=== PATIENT | female | born 1970 | race Caucasian/White ===

== ENCOUNTER 2024-11-15 15:08 | Outpatient (AMB) | payer BC, SELFPAY ==
--- NOTE | 2024-11-15 15:17 | A.OFFPC_ITS ---
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 Speaking Unit Assembler Required: No Accompanied by: Self / Same As Patient Allergies Penicillins (PCN) Allergy (Severe, Verified 11/15/24 15:24) Anaphylaxis Sulfa (Sulfonamide Antibiotics) Allergy (Severe, Verified 11/15/24 15:24) Anaphylaxis Tobacco use date assessed: 11/15/24 Dental Screening Dental Screen Date: 11/15/24 Did you have a dental visit in the last 12 months?: Yes Was dental information given to patient?: Patient has dentist HPI HPI Comments History of Present Illness Details History of Present Illness The patient is a 54-year-old female presenting for a primary care visit to establish care and address multiple health concerns, including hypertension and mental health issues. Essential Hypertension: - The patient has a history of hypertens ion, with a current blood pressure reading of 170/108 mmHg. - She was previously hospitalized for ma lignant hypertension and chest pain, during which she was started on diltiazem. - Despite medication, her blood pressure has remained elevated, often above 150 mmHg. Major Depressive Disorder: - The patient has a history of depressio n and anxiety, previously managed with paroxetine, which she discontinued two years ago. - She reports increased symptoms over th e past year, including increased alcohol consumption and reliance on hydroxyzine. Alcohol Use Disorder: - The patient consumes alcohol two to th ree times a week, with five to six drinks per occasion, primarily hard liquor mixed with Diet Coke. - She acknowledges that her drinking has increased since stopping paroxetine. Lung Nodule: - A previous CT scan revealed a lung nod ule, which was recommended for follow- up, but no further action was taken. Tobacco Use Disorder: - The patient has been smoking since age 25 and continues to smoke. Review of Systems - Cardiovascular: Reports hypertension, chest pain. Denies syncope. - Respiratory: Reports snoring, occasion al dysphagia. Denies dyspnea. - Psychiatric: Reports depression, anxie ty, increased alcohol use. 10-point ROS reviewed and negative excep t as noted in HPI Past Medical History - Hypertension - Depression - Anxiety - Malignant hypertension - Asthma - Hepatitis B Health Maintenance - Mammogram: Recommended due to last scr eening 10 years ago. - Colonoscopy: Recommended for colorecta l cancer screening. - Pap smear: Recommended despite menopau se. Physical Exam General: Well-appearing, in no acute distress. Vital signs: Blood pressure 170/108. HEENT: Normocephalic, atraumatic. PERRLA, EOMI. Conjunctiva clear, sclera anicteric. Oropharynx clear, mucous membranes moist. TMs intact bilaterally. Neck: Supple, no lymphadenopathy, no thyromegaly, no JVD or carotid bruits. Cardiovascular: RRR, normal S1/S2, no murmurs, rubs, or gallops. Peripheral pulses 2+ and symmetric. No edema. Respiratory: Lungs clear to auscultation bilaterally, no wheezes, rales, or rhonchi. Normal effort. Abdomen: Soft, non-tender, non-distended. Normoactive bowel sounds. No h epatosplenomegaly, no masses. MSK: Full range of motion, no joint swelling or deformity. Normal gait. Skin: Warm, dry, intact. No rashes, lesions, or pallor. Neuro: Alert and oriented x3. Cranial nerves II-XII intact. Strength 5/5 throughout. Sensation intact. Reflexes 2+ symmetric. Normal coordination and gait. Psych: Appropriate mood and affect. Normal judgment and insight. Reports depression and anxiety. Plan 1. Essential Hypertension - Restart diltiazem ER 240 mg once daily and monitor blood pressure regularly. - Order EKG, echocardiogram, CBC, CMP, a nd renal ultrasound to assess cardiovascular and renal status. 2. Major Depressive Disorder - Restart paroxetine 20 mg once daily an d monitor for improvement in symptoms. - Discussed the importance of avoiding a lcohol while on paroxetine due to potential side effects. 3. Alcohol Use Disorder - Discussed the need to reduce alcohol i ntake to manage hypertension and improve overall health. - Referral to behavioral health for supp ort in managing alcohol use and mental health. 4. Lung Nodule - Recommended follow-up imaging to asses s the lung nodule identified on previous CT scan. 5. Tobacco Use Disorder - Discussed smoking cessation strategies to reduce health risks. Discussion Notes I discussed with the patient the importance of managing her hypertension through medication and lifestyle changes, including reducing alcohol intake and smoking cessation. We reviewed the need for follow-up imaging for the lung nodule and the importance of resuming paroxetine for her depression and anxiety. I also recommended a referral to behavioral health for additional support. We agreed on a comprehensive plan to address her health concerns, including necessary screenings and tests. Patient was informed and verbally consented to the use of an ambient scribe for clinic note documentation during this visit. Patient Instructions - Take diltiazem ER 240 mg once daily as prescribed. - Take paroxetine 20 mg once daily and a void alcohol while on this medication. - Schedule and attend follow-up imaging for lung nodule assessment. - Reduce alcohol intake and consider [facility] for assistance. - Follow up with recommended screenings: mammogram, colonoscopy, and Pap smear. [facility] Medical History (Updated 11/15/24 @ 16:25 by Gallo Snell MD) Anxiety with depression Snoring Hypotension Family History (Updated 11/15/24 @ 15:29 by Nallely Colmenares [facility]) Mother Atrial fibrillation Breast cancer Lung cancer Father Colon cancer HTN (hypertension) Prostate cancer Alzheimer disease Social History (Updated 11/15/24 @ 15:30 by Nallely Colmenares [facility]) Housing: House Alcohol intake: current Patient Tobacco Use Status: Current everyday Tobacco user service: No Current occupational status: employed Cognitive needs: No Hearing needs: No Vision needs: Yes ( contacts) Questionnaire PHQ-9 Over the last 2 weeks, how often have you been bothered by any of the following problems? 1. Little interest or pleasure in doing things: several days 2. Feeling down, depressed, or hopeless: several days 3. Trouble falling or staying asleep, or sleeping too much: several days 4. Feeling tired or having little energy: several days 5. Poor appetite or overeating: several days 6. Feeling bad about yourself - or that you are a failure or have let yourself or your family down: several days 7. Trouble concentrating on things, such as reading the newspaper or watching television: not at all 8. Moving or speaking so slowly that other people could have noticed. Or the opposite - being so fidgety or restless that you have been moving around a lot more than usual: not at all 9. Thoughts that you would be better off or of hurting yourself in some way: not at all Total score: 6 Depression Screening Interpretation: Negative Depression Screening Done: Yes Source: Developed by Drs. Rohan Mullins, Bozena Mcconnell, Chris Joseph and colleagues, with an educational hcarlie from [employer]. Thrive Questionnaire Date Thrive assessed: 11/15/24 I am a: Patient What is your living situation today?: I have a steady place to live Within the past 12 months, did the food you bought not last and you didn't have the money to get more?: Never true Within the past 12 months, did you worry whether your food would run out before you got money to buy more?: Never true Do you have trouble paying for medicines?: No Do you have trouble getting transportation to medical appointments?: No Do you have trouble paying your heating and electricity bill?: No Do you have trouble taking care of your child, family member or friend?: No Do you have trouble with day-to-day activities such as bathing, preparing meals, shopping, managing finances, etc.?: No Are you currently unemployed and looking for a job?: No Are you interested in more education?: No Please select the resources that you would like help with: None Currently or been in a relationship where the following occur: No concerns reported THRIVE Score: 0 AUDIT C Alcohol Use Questionnaire (AUDIT-C) 1. How often do you have a drink containing alcohol?: 2-3 times a week 2. How many drinks containing alcohol do you have on a typical day when you are drinking?: 5 or 6 3. How often do you have six or more drinks on one occasion?: Monthly Total Score: 7 NOA-7 AMB Questionnaire NOA-7 Date NOA - 7 assessed: 11/15/24 Feeling nervous, anxious, or on edge: 1 = Several days Not being able to stop or control worryin = Several days Worrying too much about different things: 1 = Several days Trouble relaxin = Several days Being so restless that it is hard to sit still: 0 = Not at all Becoming easily annoyed or irritable: 1 = Several days Feeling afraid as if something awful might happen: 1 = Several days Total NOA-7 score (0-4 normal; 5-9 mild; 10-14 moderate; 15-21 severe): 6 Source: Developed by Drs. Rohan Mullins, Bozena Mcconnell, Chris Joseph and colleagues, with an educational charlie from [employer]. Physical exam (Primary Care) Vital Signs: Last Vital Signs Temp 98.0 F 11/15/24 15:21 Pulse 93 11/15/24 15:21 BP 170/108 H 11/15/24 15:21 Pulse Ox 98 11/15/24 15:21 BMI result Body Mass Index 26.3 Tobacco/Smoking Status: Tobacco use Status Tobacco use date assessed 11/15/24 11/15/24 15:35 Patient Tobacco Use Status Current everyday Tobacco 11/15/24 15:35 PHQ-9: PHQ-9 Score PHQ-9: Total score 6 11/15/24 15:36 Depression Screening Interpretation: Negative Thrive Assessment: Date of Thrive Assessment Date Thrive assessed 11/15/24 11/15/24 15:35 Currently or been in a relationship where the following occur: No concerns reported Coding Level of Care Code New Pt Level 4 (54011) Diagnoses Establishing care with new doctor, encounter for Z76.89 Encounter for screening, unspecified Z13.9 Counseling, unspecified Z71.9 Hypertension I10 Adjustment disorder with anxiety F43.22 Screening for diabetes mellitus Z13.1 Screening for lipoid disorders Z13.220 Screening for depression Z13.31 Screening for HIV (human immunodeficiency virus) Z11.4 Hypotension I95.9 Snoring R06.83 Cervical cancer screening Z12.4 Screening for malignant neoplasm of colon Z12.11 History of nicotine use Z87.891 Alcohol abuse F10.10 Lung nodule R91.1 Assessment & Plan Assessment & Plan (1) Establishing care with new doctor, encounter for: Code(s): Z76.89 - Persons encountering health services in other specified circumstances (2) Encounter for screening, unspecified: Code(s): Z13.9 - Encounter for screening, unspecified (3) Counseling, unspecified: Code(s): Z71.9 - Counseling, unspecified (4) Hypertension: Code(s): I10 - Essential (primary) hypertension (5) Adjustment disorder with anxiety: Code(s): F43.22 - Adjustment disorder with anxiety (6) Screening for diabetes mellitus: Code(s): Z13.1 - Encounter for screening for diabetes mellitus (7) Screening for lipoid disorders: Code(s): Z13.220 - Encounter for screening for lipoid disorders (8) Screening for depression: Code(s): Z13.31 - Encounter for screening for depression (9) Screening for HIV (human immunodeficiency virus): Code(s): Z11.4 - Encounter for screening for human immunodeficiency virus [HIV] (10) Hypotension: Code(s): I95.9 - Hypotension, unspecified Category: Medical (11) Snoring: Code(s): R06.83 - Snoring Category: Medical (12) Cervical cancer screening: Code(s): Z12.4 - Encounter for screening for malignant neoplasm of cervix (13) Screening for malignant neoplasm of colon: Code(s): Z12.11 - Encounter for screening for malignant neoplasm of colon (14) History of nicotine use: Code(s): Z87.891 - Personal history of nicotine dependence (15) Alcohol abuse: Code(s): F10.10 - Alcohol abuse, uncomplicated (16) Lung nodule: Code(s): R91.1 - Solitary pulmonary nodule Plan Orders: Orders Comprehensive Met. Panel Today Z13.9 - Encounter for screening, unspecified, Z76.89 - Persons encountering health services in other specified circumstances Hepatitis B Surface Antigen Today Z13.9 - Encounter for screening, unspecified, Z76.89 - Persons encountering health services in other specified circumstances Hepatitis C Antibody Today Z13.9 - Encounter for screening, unspecified, Z76.89 - Persons encountering health services in other specified circumstances HIV Ab/Ag Today Z13.9 - Encounter for screening, unspecified, Z76.89 - Persons encountering health services in other specified circumstances TSH reflex Free T4 Today Z13.9 - Encounter for screening, unspecified, Z76.89 - Persons encountering health services in other specified circumstances UA CC w/rflx Micro + Cult Today Z13.9 - Encounter for screening, unspecified, Z76.89 - Persons encountering health services in other specified circumstances Magnesium Today Z13.9 - Encounter for screening, unspecified, Z76.89 - Persons encountering health services in other specified circumstances MM screening mammo BI Today Z12.31 - Encounter for screening mammogram for malignant neoplasm of breast ECG 12 lead EKG Today I95.9 - Hypotension, unspecified Complete Blood Count Auto Diff Today Z13.9 - Encounter for screening, unspecified, Z76.89 - Persons encountering health services in other specified circumstances Hemoglobin A1c Today Z13.9 - Encounter for screening, unspecified, Z76.89 - Persons encountering health services in other specified circumstances Hepatitis B Surface Antibody Today Z13.9 - Encounter for screening, unspecified, Z76.89 - Persons encountering health services in other specified circumstances Lipid Panel Today Z13.9 - Encounter for screening, unspecified, Z76.89 - Persons encountering health services in other specified circumstances Syphilis Screen Today Z13.9 - Encounter for screening, unspecified, Z76.89 - Persons encountering health services in other specified circumstances Vitamin B12 and Folate Today Z13.9 - Encounter for screening, unspecified, Z76.89 - Persons encountering health services in other specified circumstances Vitamin D 1,25 dihydroxy Today Z13.9 - Encounter for screening, unspecified, Z76.89 - Persons encountering health services in other specified circumstances Microalbumin, Random (w Creat) Today Z13.9 - Encounter for screening, unspecified, Z76.89 - Persons encountering health services in other specified circumstances CA Echo Limited Today I95.9 - Hypotension, unspecified RT home sleep study Today I95.9 - Hypotension, unspecified, R06.83 - Snoring US retroperitoneal limited Today I10 - Essential (primary) hypertension Aldost/Renin Today I10 - Essential (primary) hypertension Referrals Open Access Screening Colonoscopy Referral Z12.11 - Encounter for screening for malignant neoplasm of colon, Z12.12 - Encounter for screening for malignant neoplasm of rectum Behavioral Health Referral F41.8 - Other specified anxiety disorders Medications: New diltiazem HCl ER (Tiazac) 240 mg PO DAILY 30 caps 0RF paroxetine HCl 20 mg PO DAILY 30 tabs 0RF
[2024-11-15 15:21] VITALS: BP 170/108; PULSE 93; TEMP 36.7; O2SAT 98; BMI 26.3
--- OUTSIDE RECORDS SUMMARY | 2024-11-15 17:37 | XMS_ITS | Clinical Summary ---
Author Organization [facility] ity Address [address] [place] [address] Care Team Providers Care Court Stenographer Name Role Phone Unavailable Primary Care Provider Unavailabl e Social History Tobacco Use Types Packs/Day Years Used Date Smoking Tobacco: Never Assessed Comments Unknown Sex and Gender Information Value Date Recorded Sex Assigned at Not on file Legal Sex Female 3:55 PM EST Gender Identity Not on file Sexual Orientation Not on file Plan of Treatment Health Maintenance Due Date Last Done Comments Breast Cancer Screening 1968 DTaP,Tdap,and Td Vaccines (1 - Tdap) 06/14/1987 Hepatitis B Vaccines (1 of 3 - 19+ 3-dose series) 06/14/1987 Cervical Cancer Screening: P ap Smear 1989 Pneumococcal Vaccine: 50+ Ye ars (1 of 1 - PCV) 2018 Zoster Vaccines (1 of 2) 2018 Colorectal Cancer Screening: Colonoscopy 03/23/2023 HIV Screening 03/23/2023 Hepatitis C Screening 03/23/2023 Social Influencers of Health Screening 03/23/2023 Depression Screening 02/23/2024 COVID-19 Vaccine ( - 2023-2 5 season) 2024 Influenza Vaccine (#1) 2024 HIB Vaccines Aged Out No longer eligi ble based on patient's age to complete this topic HPV Vaccines Aged Out No longer eligi ble based on patient's age to complete this topic Hepatitis A Vaccines Aged Out No long er eligible based on patient's age to complete this topic IPV Vaccines Aged Out No longer eligi ble based on patient's age to complete this topic MMR Vaccines Aged Out No longer eligi ble based on patient's age to complete this topic Meningococcal ACWY Vaccine Aged Out N o longer eligible based on patient's age to complete this topic Meningococcal B Vaccine Aged Out No l onger eligible based on patient's age to complete this topic RSV Immunization Patients Un bee 20 months Aged Out No longer eligible b ased on patient's age to complete this topic Varicella Vaccines Aged Out No longer eligible based on patient's age to complete this topic
--- OUTSIDE RECORDS SUMMARY | 2024-11-15 17:37 | XMS_ITS ---
Author Name [facility] Unknown History of Medication Use Medication Directions Dispensed Refills Start Date End Date Stat us lidocaine (PF) 100 mg/5 mL (2 %) injection syringe Take 3 mL by injection route. 08/01/2024 active triamcinolone acetonide 40 mg/mL suspension for injection Take 60 mg by injection route. 08/01/2024 active aspirin 325 mg tablet Take 1 tablet every day by oral route for 30 days. 05/11/2024 active oxycodone 5 mg tablet Take 1 tablet every 6 hours by oral route. 05/11/2024 active Diltiazem ER 240 mg capsule, extended release 05/10/2023 active hydroxyzine pamoate 50 mg capsule 50 mg as needed by oral route. 03/05/2019 active aspirin 325 mg tablet active oxycodone 5 mg tablet active lidocaine (PF) 100 mg/5 mL (2 %) injection syringe active triamcinolone acetonide 40 mg/mL suspension for injection active acetaminophen 500 mg tablet TAKE 2 TABLETS BY MOUTH 3 TIMES A DAY active Linda Aspirin 325 mg tablet TAKE 1 TABLET BY MOUTH EVERY DAY FOR 30 DAYS active diltiazem ER 240 mg tablet,extended release 24 hr TAKE 1 TABLET BY MOUTH EVERY DAY active doxycycline hyclate 100 mg capsule TAKE 1 CAPSULE BY MOUTH TWICE DAILY FOR 5 DAYS. active ibuprofen 600 mg tablet TAKE 1 TABLET BY MOUTH EVERY 6 HOURS active metronidazole 500 mg tablet 1 TABLET BY MOUTH 3 TIMES A DAY,X5 DAYS active Allergies Allergen Reaction Severity Comment Documented Date Source Statu s PENICILLINS ANAPHYLAXIS moderate to severe ENS_AONECT SULFA (SULFONAMIDE ANTIBIOTICS) ANAPHYLAXIS severe ENS_AONECT Encounters Encounter Type Encounter Reason Primary Diagnosis Location Date Ambulatory [facility] 10/05/2024 Ambulatory [facility] 09/29/2024 Ambulatory [facility] 08/24/2024 Ambulatory [facility] 08/01/2024 Ambulatory [facility] 07/13/2024 Ambulatory [facility] 06/29/2024 Ambulatory [facility] 06/12/2024 Ambulatory [facility] 06/05/2024 Ambulatory [facility] 05/31/2024 Ambulatory [facility] 05/24/2024 Ambulatory ROUTINE Other fracture o f upper and lower end of right fibula, initial encounter for closed fracture [facility] 05/19/2024 Ambulatory [facility] 05/17/2024 Ambulatory [facility] 05/12/2024 Ambulatory [facility] 05/11/2024 Ambulatory [facility] 05/10/2024 Ambulatory [facility] 05/08/2024 Ambulatory [facility] 05/08/2024 Ambulatory [facility] 05/08/2024 Care Team Organization Name Specialty Phone Email Start Date End Da gely [facility] 2024 [facility] 2024
== END 2024-11-15 16:30 | disposition home or self-care (01) ==
LOC: HO.HMCFMS 15:09
PROVIDERS: PCP Student in an Organized Health Care Education/Training Program; Visit Provider Student in an Organized Health Care Education/Training Program
DX: I10 Essential (primary) hypertension (principal); F43.22 Adjustment disorder with anxiety; I95.9 Hypotension, unspecified; R06.83 Snoring; F10.10 Alcohol abuse, uncomplicated; R91.1 Solitary pulmonary nodule; Z71.9 Counseling, unspecified

== ENCOUNTER 2024-11-17 15:35 | Outpatient (REF) | payer BC, SELFPAY ==
--- OUTSIDE RECORDS SUMMARY | 2024-11-17 16:02 | XMS_ITS | Clinical Summary ---
Author Organization [facility] ity Address [address] [place] [address] Care Team Providers Care Java User Interface Developer Name Role Phone Unavailable Primary Care Provider [...]
[2024-11-17 18:07] LABS: Hematocrit 44.6 % (37.0-47.0); Hemoglobin 15.0 g/dl (12.0-16.0); Imm Gran Abs Auto 0.03 X10*3/uL (0.00-0.03); Imm Gran Pct Auto 0.3 % (0.0-0.4); Lymphocytes Absolute Auto 3.7 X10*3/uL (1.2-4.9); MANUAL DIFF FLAG NO; Mean Corpuscular HGB Conc 33.6 g/dl (31.0-35.0); Mean Corpuscular Hemoglobin 33.3 pg (27.0-33.0); Mean Corpuscular Volume 98.9 fL (80.0-98.0); NRBC Abs Auto 0.000 X10*3/uL (0.0-0.012); NRBC Pct Auto 0.0 /100WBC (0.0-0.2); Platelet Count 298 X10*3/uL (160-400); Red Blood Count 4.51 X10*6/uL (4.20-5.50); White Blood Count 11.2 X10*3/uL (4.8-10.8)
[2024-11-17 18:20] LABS: Total Hemoglobin (HGBA1C) 3799.0975 umol/L
[2024-11-17 18:32] LABS: Alanine Aminotransferase 26 U/L (0-31); Albumin Level 4.2 g/dL (3.5-5.0); Alkaline Phosphatase 126 U/L (39-117); Anion Gap 13 (12-20); Aspartate Amino Transferase 26 U/L (5-31); Blood Urea Nitrogen 16 mg/dL (9-16); Calcium 9.7 mg/dL (8.4-10.2); Carbon Dioxide 24 mmol/L (22-29); Chloride 109 mmol/L (96-108); Cholesterol 306 mg/dL (<200); Estimated Glomerular Filt Rate > 60; HDL Cholesterol 63 mg/dL (>40); Magnesium 2.2 mg/dL (1.6-2.6); Potassium 4.1 mmol/L (3.3-5.1); Sodium 142 mmol/L (135-145); Total Protein 7.0 g/dL (6.5-8.0); Triglycerides 460 mg/dL (<150)
[2024-11-17 18:39] LABS: Microalbum/Creatinine Ratio Ur 7.3 ug/mg cr (<30)
[2024-11-17 18:58] LABS: Appearance Urine Clear; Glucose Urine UA Negative (Negative); PH 5.0 (5.0-9.0); Specific Gravity - Urine 1.020 (1.005-1.025); UMIC TRIGGER UACC YES
[2024-11-17 19:07] LABS: Folate 5.6 ng/mL (> or = 4.0); Vitamin B12 285 pg/mL (200-900)
[2024-11-20 04:07] LABS: Syphilis Screen Nonreactive (Nonreactive)
[2024-11-20 04:14] LABS: HBS Num1 > 1000.00 mIU/mL (0-7.99); HBsAGNum1 0.28 S/CO (0.00-0.99); HIV Num 1 0.04 S/CO (0.00-0.99); Hepatitis B Surface Antigen Negative (Negative); ~HepC Num1 0.24 S/CO (0.00-0.79); ~Hepatitis B Surface Antibody REACTIVE (Nonreactive); ~Hepatitis C Antibody Nonreactive (Nonreactive)
[2024-11-21 17:28] LABS: VITAMIN D (1,25 OH) D3 51 pg/mL; Vit D (1,25-Dihydroxy) Total 51 pg/mL (18-72); Vitamin D (1,25 OH) D2 <8 pg/mL
[2024-11-30 18:52] LABS: Plasma Renin Activity 1.21 ng/mL/h (0.25-5.82)
== END 2024-11-17 15:36 | disposition home or self-care (01) ==
LOC: HO.HKASLDS 15:35
PROVIDERS: Visit Provider Student in an Organized Health Care Education/Training Program
DX: Z13.1 Encounter for screening for diabetes mellitus (principal); Z13.89 Encounter for screening for other disorder; Z76.89 Persons encountering health services in other specified circumstances; I10 Essential (primary) hypertension
CPT/HCPCS: 36415; 80053; 80061; 81001; 81003; 82043; 82088; 82570; 82607; 82652; 82746; 83036; 83735; 84443; 85025; 86706; 86780; 86803; 87340; 87389

== ENCOUNTER 2024-12-20 14:20 | Outpatient (AMB) | payer BC, SELFPAY ==
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
[2024-12-20 14:28] VITALS: BP 139/85; PULSE 85; RESP 18; TEMP 36.4; O2SAT 99; BMI 25.6
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
--- OUTSIDE RECORDS SUMMARY | 2024-12-20 18:42 | XMS_ITS | Clinical Summary ---
Author Organization [facility] ity Address [address] [place] [address] Care Team Providers Care Hat Forming Machine Feeder Name Role Phone Unavailable Primary Care Provider [...] Last Done Comments Breast Cancer Screening 1970 Colorectal Cancer Screening: Colonoscopy 1970 DTaP,Tdap,and Td Vaccines (1 - Tdap) 06/14/1987 Hepatitis B Vaccines (1 of 3 - 19+ 3-dose series) 06/14/1987 Cervical Cancer Screening: P ap Smear 1989 Pneumococcal Vaccine: 50+ Ye ars (1 of 1 - PCV) 2018 Zoster Vaccines (1 of 2) 2018 HIV Screening 03/23/2023 Hepatitis C Screening 03/23/2023 Social Influencers of Health Screening 03/23/2023 Depression Screening 02/23/2024 COVID-19 Vaccine (1 - 2023-2 5 season) 2024 Influenza Vaccine (#1) 2024 RSV Immunization Adult Patie nts (1 - 1-dose 75+ series) 06/14/2043 HIB Vaccines Aged Out No longer eligi [...]
== END 2024-12-20 15:01 | disposition home or self-care (01) ==
LOC: HO.HMCFMS 14:21
PROVIDERS: PCP Student in an Organized Health Care Education/Training Program; Visit Provider Student in an Organized Health Care Education/Training Program
DX: H73.90 Unspecified disorder of tympanic membrane, unspecified ear (principal); H91.90 Unspecified hearing loss, unspecified ear; R91.1 Solitary pulmonary nodule; F41.8 Other specified anxiety disorders; E53.8 Deficiency of other specified B group vitamins; I10 Essential (primary) hypertension; E78.5 Hyperlipidemia, unspecified; H00.019 Hordeolum externum unspecified eye, unspecified eyelid

== ENCOUNTER 2025-01-30 09:56 | Outpatient (REF) | payer BC, SELFPAY ==
--- NOTE | ~2025-01-30 | MM_ITS ---
EXAMINATION: MM SCREENING DIGITAL BREAST TOMOSYNTHESIS, BILATERAL CLINICAL INFORMATION: Screening. Asymptomatic. COMPARISON: Mammography: Comparison is made with available priors TECHNIQUE: Digital breast mammography with tomosynthesis is performed in both the craniocaudal and mediolateral oblique views along with computer-aided detection (CAD). FINDINGS: There are scattered areas of fibroglandular density. There are no significant masses, abnormal calcifications, or other abnormalities. MM/MM tomosynthesis screening BI IMPRESSION: No mammographic evidence of malignancy. ASSESSMENT: BI-RADS Category 1: Negative RECOMMENDATION: Routine annual mammography screening. 1 year F/U This examination should not preclude the clinical evaluation of a suspicious palpable abnormality. This patient's information was entered into a reminder system with a target due date for their next mammogram. Electronically signed by: India Armstrong DO 02/02/2025 09:34 AM OMER
--- NOTE | ~2025-01-30 | US_ITS ---
CLINICAL HISTORY: I95.9 - HTN US Renal with Doppler Comparison: None provided Findings: Right kidney normal size and echotexture, 10.1 cm length. Nonspecific twinkle artifact without an obvious stone. No hydronephrosis. Normal color Doppler. Resistive index less than 0.8 (normal). Left kidney normal size and echotexture, 9.5 cm length. 1.0 x 0.9 x 0.9 cm cyst in the interpolar region with a partially calcified wall posteriorly. No hydronephrosis. Normal color Doppler. Resistive index less than 0.8 (normal). Bilateral renal veins are patent. IMPRESSION: Normal renal size and arterial and venous flow This document has been electronically signed by: Jacques Crump MD on 01/30/2025 22:09:11
--- NOTE | 2025-01-30 10:47 | ECG_ITS ---
Test Reason : I95.9 - Hypotension, unspecified Blood Pressure : */* mmHG Vent. Rate : 62 BPM Atrial Rate : 62 BPM P-R Int : 120 ms QRS Dur : 84 ms QT Int : 416 ms P-R-T Axes : 59 21 3 degrees QTcB Int : 422 ms Normal sinus rhythm Normal ECG No previous ECGs available Referred By: Gallo Snell Electronically Signed By: CAITLYN GUY MD
--- NOTE | 2025-01-30 12:30 | CA_ITS ---
Transthoracic Echocardiogram Patient (Last, First, Middle): Aura Toure, Gender: Female Date of : 1970 Age: 54 Procedure Date: 01/30/2025 Procedure Type: Transthoracic Echocardiogram Location: OP Height: 154.94 cm Weight: 66.23 kg BSA: 1.65 m2 Heart Rate: bpm BP: 139 / 78 mmHg Director [facility] Referring MD: Gallo Snell MD Guest Experience Manager: Steven Leos MD Symptoms: I95.9 -Hypotension, unspecified Study Quality: Adequate ECG Rhythm: Sinus Conclusions: - Essentially normal study Findings Left Ventricle Normal left ventricular size, thickness, and systolic function. The visually estimated ejection fraction is between 65-70%. Spectral Doppler is indicative of a normal filling pattern. Right Ventricle Normal right ventricular cavity size and systolic function. Atria Both atria are normal in size. There is no evidence of interatrial shunt. Aortic Valve Normal aortic valve structure and function. There is no aortic valve stenosis. There is no aortic valve regurgitation. Mitral Valve Normal mitral valve structure and function. There is trace mitral valve regurgitation. There is no mitral valve stenosis. Pulmonic Valve The pulmonic valve is likely normal. Tricuspid Valve Normal tricuspid valve structure. Tricuspid regurgitation envelope is inadequate for calculation of right ventricular systolic pressure. Normal right atrial pressure. Great Vessels All visible segments of the aorta are normal in size. The pulmonary artery was not well visualized. There is no dilatation of the ascending aorta measuring 3.00 cm. Venous The inferior vena cava is normal in size and collapses greater than 50% with inspiration. Pericardium/Pleural There is no evidence of pericardial effusion. Prior Study Comparison No prior study available for comparison. Measurements 2D Linear Measurements IVSd: 1.16 0.6-0.9/0.6-1.0 cm LVIDd: 4.39 3.9-5.3/4.2-5.9 cm LVIDd Index: 2.66 2.4-3.2/2.2-3.1 cm/m2 LVIDs: 2.57 2.0-3.6 cm LVPWd: 1.06 0.7-1.1 cm LA Diam: 3.40 2.7-3.8/3.0-4.0 cm LAIDs Index: 2.06 1.5-2.3 cm/m2 LV Mass: 212.37 67-162/88-224 g LV Mass Index: 128.71 43-95/49-115 g/m2 LVOT Diam: 1.80 3.0+(-)1.3 cm 2D Systolic Function EF 4C: 67.20 >55% EF 2C: 70.30 >55% EF BiP: 69.00 >55% Mitral Valve MV Pk E: 0.85 MV PK A: 0.74 MV Decel Time: 232.00 E/A: 1.20 E'Lateral: 11.30 E'Medial: 8.16 E/E' Med: 10.50 E/E' Lat: 7.50 PHT: 68.00 MVA PHT: 3.24 Decel [place]: 3.67 Aortic Valve AoV Pk Mikael: 1.52 AoV Mn Mikael: 1.04 AoV VTI: 0.33 AoV Pk Grad: 9.00 Aov Mn Grad: 5.00 NANCY Cont.VTI: 1.91 LVOT LVOT Pk Mikael: 1.19 LVOT Mn Mikael: 0.77 LVOT VTI: 0.25 LVOT Pk Grad: 6.00 LVOT Mn Grad: 3.00 LVOT Diam: 1.80 LVOT Area: 2.54 Diastolic Function MV Pk E: 0.85 MV Pk A: 0.74 E/A: 1.20 E'Medial: 8.16 E/E' Med: 10.50 E' Laterial: 11.30 E/E' Lat: 7.50 Right Ventricle TAPSE (mm): 23.20 TVS' Mikael: 10.30 Tricuspid Valve RA Press: 3.00 Great Vessels Aorta Sinus of Valsalva: 2.62 2.0-3.5 cm Ao Asc: 3.00 2.1-3.4 cm Ao Arch: 2.60 Updated in Other Vendor System with Status of Final Steven Leos MD electronically signed on 01/30/2025 4:21:44 PM with status of Final
== END 2025-01-30 09:57 | disposition home or self-care (01) ==
LOC: HO.US 09:56
PROVIDERS: PCP Student in an Organized Health Care Education/Training Program; Visit Provider Student in an Organized Health Care Education/Training Program
DX: R06.83 Snoring (principal); I95.9 Hypotension, unspecified; I10 Essential (primary) hypertension; Z12.31 Encounter for screening mammogram for malignant neoplasm of breast
CPT/HCPCS: 76775; 77063; 77067; 93005; 93306; 93975

== ENCOUNTER → 2025-01-30 09:58 | Outpatient (BNV) | payer BC, SELFPAY | PROVIDERS: PCP Student in an Organized Health Care Education/Training Program; Visit Provider Student in an Organized Health Care Education/Training Program | DX: I95.9 Hypotension, unspecified (principal) | CPT/HCPCS: 77063; 77067; 93975 ==

== ENCOUNTER → 2025-01-30 10:47 | Outpatient (BNV) | payer BC, SELFPAY | PROVIDERS: PCP Student in an Organized Health Care Education/Training Program; Visit Provider Internal Medicine Cardiovascular Disease | DX: I10 Essential (primary) hypertension (principal) | CPT/HCPCS: 93010; 93306 ==

== ENCOUNTER 2025-01-31 10:54 | Outpatient (AMB) | payer BC, SELFPAY ==
[2025-01-31 11:00] VITALS: BP 152/86; PULSE 74; O2SAT 96; BMI 26.7
--- NOTE | 2025-01-31 11:00 | A.OFFVIS_ITS ---
Vital Signs 01/31/25 11:00 Height 5 ft 3.39 in Weight 152 lb 8 oz BMI 26.7 BP 152/86 H Blood Pressure Location Lt brachial Position Sitting Pulse 74 Pulse Source Pulse Oximeter Pulse Oximetry (%) 96 Oxygen Delivery Method Room Air Intake Visit Reasons: Solitary pulmonary nodule Allergies Penicillins (PCN) Allergy (Severe, Verified 01/31/25 11:05) Anaphylaxis Sulfa (Sulfonamide Antibiotics) Allergy (Severe, Verified 01/31/25 11:05) Anaphylaxis HPI HPI Solitary pulmonary nodule: Details: Carlotta is pleasant 54-year-old female, current 20 pack-year smoker, with underlying asthma. She was referred by PCP after incidental finding of pulmonary nodules on CTA from 2023. CTA performed at [facility] April 2023 revealed two pulmonary nodules, one of which was characterized as a granuloma, and a 9 mm lymph node. She denies prior abnormal imaging or repeat imaging since then. She denies any occupational exposures. The patient is a current smoker, having started at age 25. She smoked one pack per day until about three years ago and now smokes an average of three to four cigarettes daily. Past medical history is significant for recurrent bronchitis and strep throat, though she has not experienced either in the last 10-15 years, and she has never had pneumonia. She has a history of asthma in her 20s, which was considered allergy- induced, and she has not used an inhaler for a long time. She currently experiences intermittent wheezing, particularly at night when lying down, but denies significant shortness of breath. Her respiratory symptoms, including breathing difficulties and eye irritation, can flare up for several weeks following exposure to dust, such as when cleaning her basement or garage. She has two dogs at home but does not report symptoms worsening specifically with their exposure. The patient reports constant nasal drainage and itchy, watery eyes. She avoids allergy medications due to somnolence. She denies any prior allergy testing. Of note, she is currently undergoing a sleep study as her watch has recorded oxygen saturation levels as low as 72% during sleep. [facility] Medical History (Updated 01/31/25 @ 12:52 by Adriane Jacques NP) Lung nodule Hearing loss Tympanic membrane disorder Anxiety with depression Snoring Hypotension Family History Mother Atrial fibrillation Breast cancer Lung cancer Father Colon cancer HTN (hypertension) Prostate cancer Alzheimer disease Social History (Updated 01/31/25 @ 11:04 by Paulina Hinds CMA) Housing: House Alcohol intake: current Patient Tobacco Use Status: Current everyday Tobacco user Cigarette Packs Per Day: 0.25 Cigarettes Per Day: 5 e-Cigarette/Vaping Use: Never Used service: No Current occupational status: employed Cognitive needs: No Hearing needs: No Vision needs: Yes ( contacts) Review of Systems Const Denies chills, Denies excessive sweating, Denies fever(s), Denies headache(s) and Denies night sweats Eyes Denies dry eyes ENT Reports Normal hearing present, Denies headache(s) and Denies sore throat Card Denies chest pain, Denies chest pain at rest, Denies chest pain with activity, Denies claudication, Denies leg edema, Denies dyspnea, Denies dyspnea on exertion, Denies orthopnea and Denies paroxysmal nocturnal dyspnea Resp Denies chest congestion, Denies excessive phlegm production, Denies pain on inspiration, Denies pain with cough, Denies dyspnea, Denies dyspnea on exertion and Denies stridor Musc Denies myalgias Neuro Reports Normal hearing present and Denies headache(s) Endo Denies excessive sweating Audie/Lymph Denies lymphadenopathy Aller/Immun Denies seasonal rhinorrhea Physical Exam Vital Signs: Last Vital Signs Pulse 74 01/31/25 11:00 BP 152/86 H 01/31/25 11:00 Pulse Ox 96 01/31/25 11:00 Oxygen Delivery Method Room Air 01/31/25 11:00 BMI result Body Mass Index 26.7 Const General: cooperative, healthy appearing, comfortable, no acute distress, well developed and alert Orientation/consciousness: patient oriented x3 Limitations: no limitations HEENT Head: Yes normal to inspection, Yes normocephalic and Yes atraumatic Ears: hearing grossly normal bilaterally and external ears normal Eyes General: appearance normal, both eyes and all related structures Eyelids: Yes eyelids normal Sclerae: sclerae normal EOM: EOMs intact bilaterally Neck Neck: Yes normal visual inspection and Yes no lymphadenopathy Lymphatic: no lymphadenopathy noted Chest Chest palpation & inspection: normal inspection of the chest Resp Effort & Inspection: normal respiratory effort, able to speak in complete sentences, no audible wheezes, no cough, no stridor, not tachypneic, no tripod positioning and no use of accessory muscles Auscultation: clear to auscultation bilaterally Cardio Jugular venous distension: no JVD Rate: regular rate Rhythm: regular rhythm Skin Other: warm, dry General skin exam: no rashes or lesions noted Neuro General: patient oriented x3 Cranial nerves: Yes Normal hearing present Cognition (Neuro): normal cognition Gait exam (Neuro): Normal gait present Extrem General: Yes normal to inspection, Yes capillary refill normal, Yes no clubbing, cyanosis or edema and Yes no pedal edema Psych Appearance: grossly normal and well kempt Speech and movement: Normal speech and movement present and Clear speech present Affect: normal affect Attitude: cooperative Thought process: Normal thought process present Thought content: Normal thought content present Insight: Good insight present (Psych) Judgement: Good judgement present (Psych) Assessment & Plan Assessment & Plan (1) Asthma: Code(s): J45.909 - Unspecified asthma, uncomplicated Category: Medical (2) Lung nodule: Code(s): R91.1 - Solitary pulmonary nodule Category: Medical (3) Environmental allergies: Code(s): Z91.09 - Other allergy status, other than to drugs and biological substances Category: Medical (4) Nicotine dependence, cigarettes, uncomplicated: Code(s): F17.210 - Nicotine dependence, cigarettes, uncomplicated Category: Medical Plan Informed the patient that the pulmonary nodules on her CT scan are not highly concerning and that we will monitor them with a repeat CT scan with contrast to assess stability and further evaluate for any lymphadenopathy. Explained that given her smoking history, she is a candidate for our annual lung cancer screening program, which we can discuss further at her follow-up. We discussed her respiratory symptoms, including wheezing and nasal drainage, which are likely due to uncontrolled asthma and allergies. Recommended starting a daily steroid inhaler, Arnuity, to prevent symptoms and an as-needed albuterol inhaler for flare-ups. Educated her on the need to rinse her mouth after using the steroid inhaler to prevent thrush and to call us if the prescribed medication is not covered or is too expensive, as alternatives are available. Will order a pulmonary function test to assess her lung function and a blood test to check for environmental allergies. Advised her to call us if her breathing worsens before the next appointment. All questions were answered and patient is in agreement of plan. Will follow up in 6-8 weeks or sooner if needed. Orders: Orders Complete Blood Count Auto Diff Today Z91.09 - Other allergy status, other than to drugs and biological substances Immunoglobulin E Today Z91.09 - Other allergy status, other than to drugs and biological substances PFT pulmonary function test Today J45.909 - Unspecified asthma, uncomplicated Resp Allergy Profile Region I Today Z91.09 - Other allergy status, other than to drugs and biological substances CT chest w IV con Today R91.1 - Solitary pulmonary nodule Medications: New albuterol sulfate 90 mcg/actuation 2 puffs inhalation Q4-6H PRN 1 ea 3RF shortness of breath or wheezing fluticasone furoate 100 mcg/actuation (Arnuity Ellipta) 1 inh inhalation DAILY 30 ea 3RF Coding Level of Care Code New Pt Level 4 (40147) Diagnoses Asthma J45.909 Lung nodule R91.1 Environmental allergies Z91.09 Nicotine dependence, cigarettes, uncomplicated F17.210
== END 2025-01-31 11:42 | disposition home or self-care (01) ==
LOC: HO.HPSW 10:56
PROVIDERS: PCP Student in an Organized Health Care Education/Training Program; Referring Provider Student in an Organized Health Care Education/Training Program; Visit Provider Nurse Practitioner Family
DX: J45.909 Unspecified asthma, uncomplicated (principal); R91.1 Solitary pulmonary nodule; Z91.09 Other allergy status, other than to drugs and biological substances; F17.210 Nicotine dependence, cigarettes, uncomplicated
CPT/HCPCS: 99204

== ENCOUNTER 2025-01-31 10:54 | Outpatient (REF) | payer BC, SELFPAY ==
[2025-01-31 15:28] LABS: MANUAL DIFF FLAG NO
[2025-01-31 15:34] LABS: Hematocrit 44.6 % (37.0-47.0); Hemoglobin 13.9 g/dl (12.0-16.0); Imm Gran Abs Auto 0.03 X10*3/uL (0.00-0.03); Imm Gran Pct Auto 0.4 % (0.0-0.4); Lymphocytes Absolute Auto 3.0 X10*3/uL (1.2-4.9); Mean Corpuscular HGB Conc 31.2 g/dl (31.0-35.0); Mean Corpuscular Hemoglobin 31.3 pg (27.0-33.0); Mean Corpuscular Volume 100.5 fL (80.0-98.0); NRBC Abs Auto 0.000 X10*3/uL (0.0-0.012); NRBC Pct Auto 0.0 /100WBC (0.0-0.2); Platelet Count 345 X10*3/uL (160-400); Red Blood Count 4.44 X10*6/uL (4.20-5.50); White Blood Count 8.5 X10*3/uL (4.8-10.8)
== END 2025-01-31 10:55 | disposition home or self-care (01) ==
LOC: HO.WFDLDS 10:54
PROVIDERS: PCP Student in an Organized Health Care Education/Training Program; Referring Provider Student in an Organized Health Care Education/Training Program; Visit Provider Nurse Practitioner Family
DX: J45.909 Unspecified asthma, uncomplicated (principal); R91.1 Solitary pulmonary nodule; Z91.09 Other allergy status, other than to drugs and biological substances; F17.210 Nicotine dependence, cigarettes, uncomplicated
CPT/HCPCS: 36415; 82785; 85025; 86003